=== PATIENT | female | born 1965 | race American Indian/Alaskan Native ===

== ENCOUNTER 2019-11-17 08:44 | Outpatient (CLI) | payer OTHER ==
[2019-11-17] MEDS ORDERED: ALBUTEROL 2.5 MG/3 ML NEBU IH ONE (09:59)
== END 2019-11-17 08:45 | disposition home or self-care (01) ==
LOC: PF 08:44
PROVIDERS: ATTEND Internal Medicine
DX: J44.9 Chronic obstructive pulmonary disease, unspecified (principal); G62.9 Polyneuropathy, unspecified; E03.9 Hypothyroidism, unspecified; I10 Essential (primary) hypertension; I38 Endocarditis, valve unspecified; M06.9 Rheumatoid arthritis, unspecified
CPT/HCPCS: 94060; 94640; 94729

== ENCOUNTER 2019-12-25 23:39 | Emergency (ER) | payer SELFPAY ==
[2019-12-26 00:41] VITALS: BP 128/78
[2019-12-26] MEDS ORDERED: IPRATROPIUM/ALBUTEROL SULFATE 3 ML AMPUL.NEB IH ONE (01:11)
--- NOTE | 2019-12-26 01:49 | XRay Report ---
CHEST 2 VIEWS INDICATION / CLINICAL INFORMATION: cough. COMPARISON: None available. FINDINGS: SUPPORT DEVICES: None. HEART / MEDIASTINUM: No significant abnormality. LUNGS / PLEURA: No significant pulmonary or pleural abnormality. No pneumothorax. ADDITIONAL FINDINGS: No significant additional findings. IMPRESSION: 1. No acute findings. Signer Name: Carlo Segura MD Signed: 12/26/2019 1:44 AM Workstation Name: [id number]
--- NOTE | 2019-12-26 01:59 | Emergency Department Report ---
Minor Respiratory - HPI Chief Complaint: Headache Stated Complaint: SOB,NAUSEA,LIGHT HEADED Time Seen by Provider: 12/26/19 00:51 Severity: moderate Minor Respiratory: Yes Able to Tolerate Fluids, Yes Cough, Yes Shortness of Breath, No Rhinorrhea, No Sore Throat, No Ear Pain, No Sick Contacts, No Hemoptysis, No Chest Pain, No Fever Other History: This is a 54-year-old female with a history of COPD and asthma who presents the ED complaining of intermittent dry and productive coughing for the past 2 weeks. Patient states that symptoms have not gotten better. Patient states that she has also been experiencing body aches headaches. She denies fever/chills/nausea vomiting or shortness of breath. She denies being around anyone that is been sick. ED Review of Systems ROS: Stated complaint: SOB,NAUSEA,LIGHT HEADED Other details as noted in HPI Comment: All other systems reviewed and negative ED Past Medical Hx - Social History Smoking Status: Current Every Day Smoker Substance Use Type: None - Medications Home Medications: Home Medications Medication Instructions Recorded Confirmed Last Taken Type Acetamin/Codeine 120-12Mg/5 ml 5 ml PO TID #80 ml 12/26/19 Unknown Rx [Tylenol/Codeine 120-12 mg/5 ml] Albuterol INH(or & Nicu Only) 2 puff IH QID PRN #8.5 gram 12/26/19 Unknown Rx [ProAir HFA Inhaler] Benzonatate [Tessalon Perles] 100 mg PO Q8HR #30 capsule 12/26/19 Unknown Rx Minor Respiratory Exam - Exam General: Vital signs noted. No distress. Alert and acting appropriately. HEENT: Yes Moist Mucous Membranes, No Pharyngeal Erythema, No Pharyngeal Exudates, No Rhinorrhea, No Conjuctival Injection, No Frontal Tenderness, No Maxillary Tenderness Ear: Neither TM Bulge, Neither TM Erythema, Neither EAC Pain, Neither EAC Discharge Neck: Yes Supple, No Adenopathy Lungs: Yes Good Air Exchange, No Wheezes, No Ronchi, No Stridor, No Cough, No Labored Respirations, No Retractions, No Use of Accessory Muscles, No Other Abnormal Lung Sounds Heart: Yes Regular, No Murmur Abdomen: Yes Normal Bowel Sounds, No Tenderness, No Peritoneal Signs Skin: No Rash, No Edema Neurologic: Alert and oriented, no deficits. Musculoskeletal: Unremarkable. ED Course Vital Signs 12/25/19 23:51 Temperature 98.6 F Pulse Rate 77 Respiratory 20 Rate Blood Pressure 128/78 O2 Sat by Pulse 95 Oximetry ED Medical Decision Making - Radiology Data Radiology results: report reviewed, image reviewed INDICATION / CLINICAL INFORMATION: cough. COMPARISON: None available. FINDINGS: SUPPORT DEVICES: None. HEART / MEDIASTINUM: No significant abnormality. LUNGS / PLEURA: No significant pulmonary or pleural abnormality. No pneumothorax. ADDITIONAL FINDINGS: No significant additional findings. IMPRESSION: 1. No acute findings. Signer Name: Carlo Segura MD Signed: 12/26/2019 1:44 AM Workstation Name: [id number] Transcribed By: DT Dictated By: Juventino Segura MD Electronically Authenticated By: Juventino Segura MD Signed Date/Time: 12/26/19 0144 - Medical Decision Making This 54-year-old female presents with bronchitis. Patient received breathing treatment and cough suppressant and steroids in the ED. Chest x-ray shows negative for pneumonia or any acute findings. Critical care attestation.: If time is entered above; I have spent that time in minutes in the direct care of this critically ill patient, excluding procedure time. ED Disposition Clinical Impression: Bronchitis, Upper respiratory infection, Asthmatic bronchitis Disposition: DC-01 TO HOME OR SELFCARE Is pt being admited?: No Does the pt Need Aspirin: No Condition: Stable Instructions: Chronic Bronchitis (ED), Viral Syndrome (ED) Additional Instructions: Make sure to follow up with the primary care physician as discussed. Take all your medications as you've been prescribed. If you have any worsening symptoms or develop new symptoms please return to ED immediately. Prescriptions: Albuterol INH(or & Nicu Only) [ProAir HFA Inhaler] 2 puff IH QID PRN #8.5 gram PRN Reason: Shortness Of Breath Benzonatate [Tessalon Perles] 100 mg PO Q8HR #30 capsule Acetamin/Codeine 120-12Mg/5 ml [Tylenol/Codeine 120-12 mg/5 ml] 5 ml PO TID #80 ml Referrals: PRIMARY CARE, [Primary Care Provider] - 3-5 Days [facility] [Outside] - 3-5 Days [facility] [Outside] - 3-5 Days [facility] [Outside] - 3-5 Days Forms: Accompanied Note, Work/School Release Form(ED) Time of Disposition: 02:17
[2019-12-26] MEDS ORDERED: predniSONE 20 MG TAB PO ONE (02:03)
[2019-12-26] MEDS ORDERED: ACETAMINOPEN W/CODEINE 120-12MG ORAL LIQD 5 ML PO ONE (02:04)
== END 2019-12-26 02:33 | disposition home or self-care (01) ==
LOC: ED 23:39
DX: J45.909 Unspecified asthma, uncomplicated (principal); J06.9 Acute upper respiratory infection, unspecified; F17.200 Nicotine dependence, unspecified, uncomplicated; Z91.040 Latex allergy status; Z88.0 Allergy status to penicillin
CPT/HCPCS: 71046; 94640; 99283; J7512